=== PATIENT | male | born 1940 | race Hispanic/Latino ===

== ENCOUNTER 2016-07-23 23:25 | Emergency (ER) | payer MEDICARE ==
[~2016-07-23] VITALS: Ht 170.2 cm; Wt 95.4 kg
[~2016-07-23 23:25] MED LIST: ACET5ELI PO; AMOX500C5 PO; BENZ-24 PO; CARB1TAB44 PO; CARB1TAB45 PO; CARB1TAB7 PO; CHLO118M2 MM; CYCL-265 PO; DM/P295L13; GUAI100L13 PO; GUAI100L2; HYDR-3754 PO; HYDR-3881 PO; LORA0.5P MC; LORA0.5T PO; POLYETHYLENE GL17 GM PO; PRAM1TAB2; PRAM1TAB2 PO; PRAM1TAB3 PO; PROM25TA5 PO; TRAZ-28 PO; parkinson med
--- OUTSIDE RECORDS SUMMARY | 2016-07-23 23:31 | XMS REPORT | Summary of Care ---
Author Author Shailesh Izaguirre M.D. 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 Refills: 0 Start 21-Dec-2015 Active Pramipexole Dihydrochloride 1.5 MG Oral Tablet TAKE 1 TABLET 3 TIMES DAILY. Quantity: 90 Refills: 5 Zina M.D., Shailesh Start 21-Dec-2015 Active Selegiline HCl - 5 MG Oral Tablet TAKE 1 TABLET TWICE DAILY. Quantity: 60 Refills: 0 Zina M.D., Shailesh Start 21-Dec-2015 Active Fexofenadine-Pseudoephed ER 60-120 MG Oral Tablet Extended Release 12 Hour TAKE 1 TABLET EVERY 12 HOURS NEEDED. Quantity: 60 Refills: 0 Embarrass M.D., Shailesh Start 14-Jan-2016 Active Allergies and Adverse Reactions Name Dates Details No Known Drug Allergies (Allergy) Status: Active Procedures Procedure Dates Details History of Appendectomy History of Hernia Repair CBC w/ Auto Diff 7150 Ordered: 21-Dec-2015 Comprehensive Metabolic Panel 1212 Ordered: 21-Dec-2015 Immunization Name Dates Details Immunizations not documented Family History Name Dates Details No pertinent family history Comments: Family History Status: Active Social History Name Dates Details Unknown if ever smoked Vital Signs Date Test Result Details 14-Jan-2016 10:21 BP Systolic 128 mm[Hg] Status: Comments: Location: RUE; Position: Sitting BP Diastolic 82 mm[Hg] Status: Comments: Location: [facility]; Position: Sitting Temperature 97.7 f Status: Comments: Method: Tympanic Heart Rate 72 /min Status: Comments: Location: ; Physical Findings 95 Status: Comments: O2 Saturation 21-Dec-2015 14:47 BP Systolic 100 mm[Hg] Status: Comments: Location: [facility]; Position: Sitting BP Diastolic 70 mm[Hg] Status: Comments: Location: [facility]; Position: Sitting Temperature 97.5 f Status: Comments: Method: Tympanic Heart Rate 55 /min Status: Comments: Location: ; Height 67.5 in Status: Weight 209 lb Status: Physical Findings 97 Status: Comments: O2 Saturation Body Mass Index Calculated 32.25 kg/m2 Status: Body Surface Area Calculated 2.07 m2 Status: Results Date Description Value Details Results not documented Plan of Care Name Dates Details Planned Observations Planned Goals not documented Planned Encounters Appointment; Provider: Jack Harris M.D. On 08-Feb-2016 09:00 Appointment; Provider: Shailesh Izaguirre M.D. On 21-Jan-2016 14:00 Interventions Provided Medication ChangesFexofenadine-Pseudoephed ER 60-120 MG Oral Tablet Extended Release 12 Hour - Renew Instructions Name Dates Details Instructions not documented Encounters Appointment; Shailesh Izaguirre M.D. Encounter Diagnosis: Problem not documented On 21-Dec-2015 14:30
[2016-07-23 23:35] VITALS: BP 101/64
[2016-07-23] MEDS ORDERED: SULF1TAB35 PO (23:47)
[2016-07-23] MEDS ORDERED: SULFAMETHOXAZOLE/TRIMETHOPRIM 800-160 MG (SEPTRA DS) TAB PO ONE (23:50)
--- NOTE | 2016-07-23 23:52 | NUR ---
CALLED POISON CONTROL ANDSPOKE TO BRANDI. HE SAID THAT IS NO DIKCEY OR OTHER PROBLEMS SEEN BY DOCTOR THEN PT COULD GO HOME
== END 2016-07-24 00:36 | disposition home or self-care (01) ==
LOC: ED 23:28
DX: T18.0XXA Foreign body in mouth, initial encounter (principal); X58.XXXA Exposure to other specified factors, initial encounter; Y93.84 Activity, sleeping; Y92.003 Bedroom of unspecified non-institutional (private) residence as the place of occurrence of the external cause
CPT/HCPCS: 99281; 99282